=== PATIENT | female | born 1990 | race Caucasian/White ===

== ENCOUNTER 2019-07-02 16:30 | Inpatient (IN) | payer OTHER ==
[2019-07-02] MEDS ORDERED: ELECTROLYTE-148 SOLN 1,000 ML IV SCH (17:15)
--- NOTE | 2019-07-02 17:30 | HP ---
Past Medical History - Admission Chief Complaint: PROM, LOF History of Present Illness: 29yo @ 37.5wks by LMP/sono, TIGRE 07/18/2019 here with LOF since 3PM, clear fluid. uncomplicated. x 1 PNC @ [address] GBS neg History Source: Patient Limitations to Obtaining History: No Limitations - Past Medical History GARDE MANGER: No: Alzheimer's, CVA, Dementia, Migraine, Multiple Sclerosis, Peripheral Neuropathy, Parkinson's, Seizure, Syncope, TIA, Vertigo, Other Cardiovascular: No: AFIB, Aneurysm, Aortic Insufficiency, Aortic Stenosis, CAD, CHF, Deep Vein Thrombosis, HTN, Hyperlipdemia, GA, Mitral Insufficiency, Mitral Stenosis, Murmur, Pulmonary Hypertension, Other Pulmonary: No: Asthma, Bronchitis, Cancer, COPD, O2 Dependent, Pneumonia, Previously Intubated, Pulmonary Embolus, Pulmonary Fibrosis, Sleep Apnea, Other Gastrointestinal: No: Ascites, Cancer, Constipation, Crohn's Disease, Diverticulitis, Diverticulosis, Esophageal Varices, Gastritis, GERD, GI Bleed, Hemorrhoids, Hiatal Hernia, Inflamatory Bowel Disease, Irritable Bowel Disease, Pancreatitis, Peptic Ulcer Disease, Ulcerative Colitis, Other Hepatobiliary: No: Cirrhosis, Cholelithiasis, Cholecystitis, Choledocholithiasis , Hepatitis A, Hepatitis B, Hepatitis C, Other Renal/: No: Renal Failure, Renal Inusuff, BPH, Cancer, Hematuria, Hemodialysis , Neurogenic Bladder, Renal Calculi, UTI, Other Reproductive: No: Ectopic , Endometriosis, Fibroids, PID, Polycystic Ovary Syndrome, Postmenopausal, Other ...: 2 ...Para: 1 ...Term: 1 ...: 0 ... Weeks Gestation by Dates: 37.5 ...EDC by Dates: 07/18/19 Heme/Onc: Yes: Anemia Infectious Disease: No: AIDS, C-Diff, Herpes Zoster, HIV, MRSA, STD's, Tuberculosis, VREF, Other - Past Surgical History Past Surgical History: Yes: None Hx Myomectomy: No Hx Transabdominal Cerclage: No - Smoking History Smoking history: Never smoked Have you smoked in the past 12 months: No - Alcohol/Substance Use Hx Alcohol Use: No History of Substance Use: reports: None - Social History Usual Living Arrangement: Yes: Alone, With Spouse History of Recent Travel: No Physical Exam - Maternity Constitutional: Yes: Well Nourished, No Distress, Calm - Abdominal Exam/OB Number of Fetuses: Single Presentation: Vertex Contractions: Yes Regularity: Irregular Intensity: Unaware Monitor Mode: External Category: I Accelerations: Non-Uniform Decelerations: None - Vaginal Exam/OB Vaginal Bleediing: No Speculum Exam: Yes (+ pooling) Dilatation (cm): 2 Effacement (%): 0 Amniotic Membrane Status: Ruptured Nitrazine Test: Positive Amniotic Fluid: Yes: Clear Presentation: Vertex/Position Station: -3 - Physical Exam Edema: No Problem List - Problems (1) PROM (premature rupture of membranes) Code(s): O42.90 - ELEUTERIO ROM, 7TH0 BETW RUPT & ONST LABR, UNSP WEEKS OF GEST Assessment/Plan 29yo @ 37.5wks here with PROM Admit to L&D IVFs Cat I tracing Pitocin augmentation Anticipate GIL Thomas MD
[2019-07-02 17:48] VITALS: BMI 25.9
[2019-07-02] MEDS ORDERED: OXYTOCIN 30 UNITS in 0.9% NS 30 UNIT/500 ML INFUS.BAG IVPB SCH (18:45)
[2019-07-02] MEDS ORDERED: OXYTOCIN 30 UNITS in 0.9% NS 30 UNIT/500 ML INFUS.BAG IVPB ONE (19:17)
[2019-07-02 19:51] LABS: BASO % 0.3 % (0-2.0); EOS % 0.4 % (0-4.5); HEMOGLOBIN 12.6 GM/dL (10.7-15.3); LYMPH % 11.7 % (8-40); MCH 33.3 pg (25.7-33.7); MEAN CELL VOLUME 97.9 fl (80-96); MEAN PLT VOLUME 11.5 fl (7.5-11.1); MONO % 5.8 % (3.8-10.2); NEUT % 81.8 % (42.8-82.8); PLATELET COUNT 101 K/MM3 (134-434); RBC 3.77 M/mm3 (3.60-5.2); RDW 14.2 % (11.6-15.6); WHITE BLOOD COUNT 6.8 K/mm3 (4.0-10.0)
[2019-07-02 20:16] LABS: INR 0.89 (0.83-1.09); PROTHROMBIN TIME (PATIENT) 10.5 SEC (9.7-13.0)
[2019-07-02 20:30] LABS: BLOOD UREA NITROGEN 8.2 mg/dL (7-18); CALCIUM 8.2 mg/dL (8.5-10.1); CREATININE 0.4 mg/dL (0.55-1.3); POTASSIUM 3.6 mmol/L (3.5-5.1)
[2019-07-02] MEDS ORDERED: BUTORPHANOL TARTRATE 1 MG/ML VIAL ONE ×2 (21:39)
[2019-07-02] MEDS ORDERED: PROMETHAZINE HCL 25 MG/1 ML VIAL ONE (21:40)
[2019-07-02] MEDS ORDERED: PROMETHAZINE HCL 25 MG/1 ML VIAL IVPB ONE (21:45)
[2019-07-02] MEDS ORDERED: BUTORPHANOL TARTRATE 2 MG/ML VIAL IVPB ONE (21:45)
[2019-07-02] MEDS ORDERED: OXYTOCIN 20 UNITS in 0.9% NS 20 UNIT/1,000 ML INFUS.BAG IV ONE (23:11)
[2019-07-02] MEDS ORDERED: LIDOCAINE HCL 1% PRESERVATIVE FREE - 30ML VIAL ONE (23:11)
[2019-07-03] MEDS ORDERED: BENZOCAINE 20% 57 GM BOTTLE TP PRN (00:01)
[2019-07-03] MEDS ORDERED: BISACODYL 10 MG SUPP.RECT RC PRN (00:01)
[2019-07-03] MEDS ORDERED: WITCH HAZEL 50% (TUCKS) 40 PAD/JAR PAD TP PRN (00:01)
[2019-07-03] MEDS ORDERED: METHYLERGONOVINE MALEATE 0.2 MG/1 ML AMP IM PRN (00:01)
[2019-07-03] MEDS ORDERED: BENZOCAINE 28 GM HEMORRHOIDAL OINTMENT TP PRN (00:01)
--- NOTE | 2019-07-03 00:01 | PN ---
Delivery - Delivery Vaginal Delivery: Spontaneous Type of Anesthesia: Local Episiotomy/Laceration: Right Mediolateral, 1st degree Delivery, Single - Stages of Labor Placenta: Yes: Spontaneous - Condition of Greenhouse Superintendent/Sound Effects Person Present: No Infant Gender: Male Position: OP - 1 Minute Total Score: 9 5 Minutes Total Score: 9 - Feeding Plan Initial Plan: Exclusive throughout hospitalization Remarks - Remarks Remarks: of VMI from Direct OP over right mediolateral episiotomy. No nuchal. No meconium. Local anesthesia given prior to episiotomy. Spontaneous delivery of anterior shoulder and remaining body. placed on maternal abdomen. Cord clamped and cut. Apgars 9/9. Weight pending to allow sufficient skin to skin. Spontaneous delivery of intact placenta with 3VC. Fundus firm. Perineum inspected, mediolateral episiotomy repaired with 3-0 chromic. Good hemostasis. Several brisk rushes of blood, Methergine course x 1 given. Bleeding improved. EBL 400ml. Mother and baby doing well. Jlui Thomas MD
[2019-07-03] MEDS ORDERED: OXYTOCIN 20 UNITS in 0.9% NS 20 UNIT/1,000 ML INFUS.BAG IV SCH (00:15)
[2019-07-03] MEDS: ACETAMINOPHEN 325 MG TABLET (FP) PO PRN ×3 (01:20→21:13)
[2019-07-03] MEDS: IBUPROFEN 600 MG TABLET (FP) PO PRN ×2 (07:59→21:13)
[2019-07-03] MEDS: PRENATAL VITAMINS W/ FOLIC ACID TABLET (FP) PO SCH (10:13)
[2019-07-03 21:16] VITALS: TEMP 98.3
--- NOTE | 2019-07-04 06:59 | DS ---
Physical Exam-SUPERVISOR SHEARING Vital Signs: Vital Signs Temperature 98.3 F 07/03/19 21:15 Pulse Rate 80 07/03/19 21:15 Respiratory Rate 20 07/03/19 21:15 Blood Pressure 98/58 L 07/03/19 21:15 O2 Sat by Pulse Oximetry (%) 98 07/03/19 00:45 Constitutional: Yes: Well Nourished, No Distress, Calm Eyes: Yes: WNL, Conjunctiva Clear, EOM Intact HENT: Yes: WNL, Atraumatic, Normocephalic Neck: Yes: WNL, Supple, Trachea Midline Cardiovascular: Yes: WNL, Regular Rate and Rhythm Respiratory: Yes: WNL, Regular, CTA Bilaterally Gastrointestinal: Yes: WNL ...Rectal Exam: Yes: WNL Renal/: Yes: WNL ....Post : Yes: Uterus firm, Uterus non-tender, Slight lochia rubra Breast(s): Yes: WNL Musculoskeletal: Yes: WNL Extremities: Yes: WNL Edema: No Integumentary: Yes: WNL Neurological: Yes: WNL, Alert, Oriented ...Motor Strength: WNL Psychiatric: Yes: WNL, Alert, Oriented Labs: CBC, BMP 07/02/19 19:00 07/02/19 19:00 Delivery - Delivery Vaginal Delivery: Spontaneous Type of Anesthesia: Local Episiotomy/Laceration: Right Mediolateral, 1st degree EBL (cc): 400 Delivery, Single - Stages of Labor Date 1st Stage Initiatied: 07/02/19 Time 1st Stage Initiated: 21:00 Date 2nd Stage Initiated: 07/02/19 Time 2nd Stage Initiated: 23:10 Date of Delivery: 07/02/19 Time of Delivery: 23:42 Time Placenta Delivered: 23:45 Placenta: Yes: Spontaneous - Condition of Stone Spreader Operator/Hot Strip Mill Inspector Present: No Infant Gender: Male Weight: 6 lb 15 oz Position: OP Total Hours ROM (Hrs/Mins): 8hrs 45min - 1 Minute Total Score: 9 5 Minutes Total Score: 9 - Feeding Plan Initial Plan: Exclusive throughout hospitalization Discharge Summary Reason For Visit: LABOR Current Active Problems PROM (premature rupture of membranes) (Acute) Procedures: Principal: Other Procedures: no complication Condition: Stable - Instructions Diet, Activity, Other Instructions: Regular Diet Follow up in 4-6 weeks for your visit Referrals: Nikole Guo CNM [Certified Nurse Bobbin Collector] - Juli Thomas MD [Staff Physician] - Disposition: HOME - Home Medications Comprehensive Discharge Medication List: Ambulatory Orders Tablet 1 tab PO DAILY 07/02/19
[2019-07-04 08:41] VITALS: BP 96/60; PULSE 85
[2019-07-04 08:49] LABS: BASO % 0.2 % (0-2.0); EOS % 0.9 % (0-4.5); LYMPH % 11.8 % (8-40); MCHC 34.5 g/dl (32.0-36.0); MEAN CELL VOLUME 98.6 fl (80-96); MEAN PLT VOLUME 10.4 fl (7.5-11.1); MONO % 5.6 % (3.8-10.2); NEUT % 81.5 % (42.8-82.8); PLATELET COUNT 127 K/MM3 (134-434); RBC 2.94 M/mm3 (3.60-5.2); RDW 14.5 % (11.6-15.6); WHITE BLOOD COUNT 8.2 K/mm3 (4.0-10.0)
[2019-07-04] MEDS: PRENATAL VITAMINS W/ FOLIC ACID TABLET (FP) PO SCH (09:27)
[2019-07-04] MEDS ORDERED: SENNOSIDES/DOCUSATE COMBO (SENNA PLUS) TABLET (UD) PO PRN (22:00)
== END 2019-07-04 14:10 | disposition home or self-care (01) | DRG 560 ==
LOC: JDEL 16:30 → JLDR 16:50 → J3W 07-03 01:30
PROVIDERS: ADMIT Obstetrics & Gynecology; ATTEND Obstetrics & Gynecology
PROC: 0HQ9XZZ Repair Perineum Skin, External Approach (ICD-10-PCS; principal; 2019-07-02)
PROC: 10E0XZZ Delivery of Products of Conception, External Approach (ICD-10-PCS; 2019-07-02)
DX: O42.02 Full-term premature rupture of membranes, onset of labor within 24 hours of rupture (principal); O70.0 First degree perineal laceration during delivery; Z3A.37 37 weeks gestation of pregnancy; Z37.0 Single live birth
CPT/HCPCS: 36415; 59409; 80048; 85025; 85610; 85730; 86593; 86850; 86900; 86901